=== PATIENT | female | born 1990 | race Caucasian/White ===

== ENCOUNTER 2023-03-12 12:08 | Day surgery (SDC) | payer OTHER, SELFPAY ==
--- NOTE | 2023-03-12 | PATH_ITS ---
[facility] Accession Number: [id number] No. of containers..01 Tissue . 01 Material submitted: . rectum - RECTAL LESION . 01 Diagnosis: Rectal Lesion, Biopsy: Hyperplastic colonic mucosa with active inflammation and features of mucosal prolapse. Please see comment. Negative for granulomas, dysplasia, and malignancy. [facility] 03/24/2023 2321 Local . 01 Comment: The biopsies are of superficial colonic mucosa with hyperplastic mucosal changes and mucosal prolapse. There is mild cryptitis without marked lymphoplasmacytosis. Crypt distortion cannot be evaluated due to the superficial sections. The overall morphologic appearance raises a consideration for mucosal prolapse/solitary rectal ulcer syndrome versus partial sampling of an inflammatory cloacogenic polyp. There is no evidence of dysplasia or malignancy. . 01 Electronically signed: . Jenifer Justin MD, Pathologist NPI- [id number] . 01 Gross description: . RECTAL LESION: Received in formalin is 1 fragment(s) of bustos, soft tissue measuring 0.3 x 0.2 x 0.1 cm submitted entirely in 1 cassette(s) /AAY 03/18/2023 1203 Local . 01 Pathologist provided ICD-10: K62.5 . 01 CPT . 651406 Specimen Comment: A courtesy copy of this report has been sent to [phone] Performed at: 01 [facility] [address] [place] [address] [address], [place], [place] [id number] MD Ellis Silver MD Phone: [phone]
[2023-03-12 12:28] VITALS: BP 143/73; PULSE 83; RESP 16; TEMP 36.7; O2SAT 100; BMI 21.6
--- NOTE | 2023-03-12 12:35 | PM.HP.1 ---
History of Present Illness History of Present Illness Date Patient Seen: 03/12/23 Chief complaint: Dx Colonoscopy Narrative: Rectal bleeding Meds Home Medications and Allergies Allergies Allergy/AdvReac Type Severity Reaction Status Date / Time No Known Drug Allergies Allergy Verified 03/12/23 12:19 Exam Narrative Exam Narrative: Oropharynx free of lesions Chest clear to auscultation percussion Cardiac exam reveals no S3 or murmur Assessment & Plan Assessment & Plan narrative: Rectal bleeding. Need for diagnostic colonoscopy. Risks, benefits, alternatives have explained.
--- NOTE | 2023-03-12 12:36 | PM.OP.COLON ---
Operative Date/Time/Diagnoses Date of procedure: 03/12/23 Pre-op diagnosis: See indication and findings Procedure & Clinicians Study performed: Colonoscopy Indications: Rectal bleeding Surgeon: Lionel Mckeon Procedure Notes Procedure in detail: After informed consent was obtained the patient was placed in left lateral decubitus position. The video colonoscope was introduced the rectum slowly advanced cecum. Preparation was good. On slow withdrawal mucosa was carefully examined. The scope was removed. The patient tolerated procedure well. Blood loss none Complications none Sedation mac Findings 1. Linear inflamed lesion extending from anus approximately 2.5 cm proximal. Most proximal area was biopsied gently x2. No bleeding was seen. 2. Otherwise negative colonoscopy to cecum We will merely await biopsies and discuss next steps for intervention
[2023-03-12] MEDS: LACTATED RINGERS 1,000 ML 100 ML IV (12:41)
[2023-03-12 13:03] VITALS: BP 99/38; PULSE 62; RESP 20; TEMP 36; O2SAT 98
[2023-03-12 13:10] VITALS: BP 87/45; PULSE 96; RESP 14; O2SAT 98
[2023-03-12 13:20] VITALS: BP 90/42; PULSE 71; RESP 13; O2SAT 100
== END 2023-03-12 13:28 | disposition home or self-care (01) ==
PROVIDERS: PCP Physician Assistant; Referring Provider Internal Medicine Gastroenterology; Visit Provider Internal Medicine Gastroenterology
PROC: 0DJD8ZZ Inspection of Lower Intestinal Tract, Via Natural or Artificial Opening Endoscopic (ICD-10-PCS; CPT 45378; principal; 2023-03-12 13:00)
DX: K62.5 Hemorrhage of anus and rectum (principal); K62.1 Rectal polyp
CPT/HCPCS: 45380; J2704

== ENCOUNTER 2023-03-15 10:51 | Emergency (ER) | payer OTHER, SELFPAY ==
[2023-03-15] VITALS (7 sets, daily range): BP systolic 103–147; BP diastolic 52–71; PULSE 39–73; RESP 12–21; TEMP 37.2; O2SAT 99–100; BMI 21.6
[2023-03-15 11:41] LABS: Add Manual Diff / Slide Review NO; Basophils Absolute Auto 100 /uL (0-100); Eosinophils Absolute Auto 200 /uL (0-450); Eosinophils Percent Auto 2.9 % (2-4); Hemoglobin 12.9 g/dL (12.0-16.0); Lymphocytes Absolute Auto 1400 /uL (1100-4500); Lymphocytes Percent Auto 26.5 % (25-40); Mean Corpuscular Hemoglobin 30.7 PG (26-34); Mean Corpuscular Volume 90.2 fL (80-100); Monocytes Absolute Auto 300 /uL (0-900); Monocytes Percent Auto 6.6 % (3-14); Neutrophils Absolute Auto 3400 /uL (1500-7000); Platelet Count 195 X10^3/uL (150-400); Red Blood Cell Count 4.22 X10^6/uL (4.0-5.2); Red Cell Distribution Width 13.9 % (11.6-14.8); White Blood Cell Count 5.3 X10^3/uL (4.5-11.0)
[2023-03-15 11:44] LABS: INR 1.1 (0.9-1.3); Prothrombin Time 12.1 SECONDS (10.1-12.7)
[2023-03-15 11:47] LABS: PTT Partial Thromboplastin Tim 31 SECONDS (26-36)
[2023-03-15 11:49] LABS: Alanine Aminotransferase 18 IU/L (<35); Albumin 4.6 g/dL (3.5-5.0); Albumin Globulin Ratio 1.6 (1.0-2.8); Alkaline Phosphatase 43 U/L (38-126); Aspartate Aminotransferase 30 IU/L (14-36); BUN Creatinine Ratio 14.7 (6-22); Blood Urea Nitrogen 15 mg/dL (7-17); Carbon Dioxide 27 mmol/L (22-32); Chloride 102 mmol/L (98-107); Estimated Glomerular Filt Rate > 60 mL/min (>60); Globulin 2.9 g/dL (1.7-4.1); Glucose 101 mg/dL (70-100); HEMOLYSIS 17 (0-50); Potassium 4.2 mmol/L (3.4-5.1); Sodium 136 mmol/L (137-145); Total Protein 7.5 g/dL (6.3-8.2)
[2023-03-15] MEDS: PANTOPRAZOLE 40 MG VIAL 80 MG IV (12:18)
--- NOTE | 2023-03-15 12:40 | PC.NURSE ---
Patient ambulated to the bathroom to give urine and stool samples. There was no stool, but patient did have about 15cc of straight bright red blood. She states it has been dripping like this since her recent colonoscopy.
--- NOTE | 2023-03-15 12:49 | ED_ITS ---
HPI - GI Bleed General Chief complaint: GI Bleed Stated complaint: concerns from Colonoscopy on 03/12 Time Seen by Provider: 03/15/23 12:38 Source: patient Mode of arrival: Ambulatory History of Present Illness HPI Narrative: 32-year-old female with history of PDA repair at age 8, appendectomy and C- section no daily medication with recent colonoscopy for rectal bleeding. Patient states she had been having rectal bleeding. She had colonoscopy on Friday with Dr. Mckeon here at [facility]. Patient states she was told she would a biopsy that results are pending from this. Since then she is had bright red blood sometimes when she has a bowel sometimes she just has blood when she goes to have what feels like a bowel movement. She did have 1 episode here that showed 20 mL of blood, she states sometimes will seem a little bit more sometimes less. She states sometimes hard to tell because it is in the water in the toilet. She states the 1st day she did have some constipated harder bowel movements since then they have been looser. Patient states no fevers. No chest pain or shortness of breath. She felt a little dizzy and lightheaded. No syncope. No nausea or vomiting. She denies any abdominal pain. She states she is had a little mild rectal discomfort but no rectal pain. She states she is had maximally 5 episodes each day daily. Patient states no dysuria urgency or frequency. She is not had issues with bleeding in the past. She is not on any anticoagulants. She states no daily medications. She notes surgical history is a PDA repair at age 8, appendectomy, orthopedic repair with rods and removal for or ulna and . No known drug allergies. No tobacco occasional alcohol, no illicit. Related Data Home Medications Medication Instructions Recorded Confirmed No Known Home Medications 03/12/23 03/12/23 Allergies Allergy/AdvReac Type Severity Reaction Status Date / Time No Known Drug Allergies Allergy Verified 03/15/23 11:03 Review of Systems Review of Systems ROS Unobtainable: All systems reviewed & are unremarkable except as noted in HPI and below Patient History Social History household members: spouse Smoking Status: Never smoker alcohol intake: current Smoking Status: Never smoker alcohol intake frequency: holidays/special occasions only Substance Use Type: does not use Exam Narrative Exam Narrative: GENERAL: Alert and oriented x three, well-appearing female in mild distress. HEENT: Head normocephalic, atraumatic, EOMI, pupils reactive, face symmetric, moist mucous membranes NECK: Supple, full range of motion CARDIOVASCULAR: Bradycardic but Regular rate and rhythm without murmurs, rubs or gallops. RESPIRATORY: Breath sounds equal bilaterally, no wheezes rales or rhonchi. ABDOMEN: Soft, nontender. Normoactive bowel sounds all 4 quadrants. No guarding or rebound, rigidity, no mass, patient had bright red blood per rectum. Stool occult positive. No large clots. : No CVA tenderness EXTREMITIES: Normal range of motion, no clubbing or edema. Neurovascularly intact NEUROLOGICAL: Cranial nerves II through XII grossly intact. Moving all extremities SKIN: Warm, dry, no petechiae, no rashes or lesions. Initial Vital Signs Initial Vital Signs: Vital Signs Temperature 98.9 F 03/15/23 10:58 Pulse Rate 73 03/15/23 10:58 Respiratory Rate 20 03/15/23 10:58 Blood Pressure 147/71 H 03/15/23 10:58 Pulse Oximetry 99 03/15/23 10:58 Oxygen Delivery Method Room Air 03/15/23 10:58 Course Orders Ordered: ED Orders 03/15/23 11:09 Complete Blood Count AUTO DIFF Stat Comprehensive Metabolic Panel Stat PTT Partial Thromboplastin Peng Stat Prothrombin Time INR Stat 03/15/23 12:55 Type and Screen Stat Discontinued Medications Ondansetron HCl (Ondansetron 4 Mg/2 Ml Inj) 4 mg IV NOW PRN PRN Reason: Nausea And Vomiting Ondansetron HCl (Ondansetron 4 Mg Odt) 4 mg SL NOW PRN PRN Reason: Nausea And Vomiting Pantoprazole Sodium (Pantoprazole 40 Mg Vial) 80 mg IV NOW ONE Stop: 03/15/23 11:16 Last Admin: 03/15/23 12:18 Dose: 80 mg Documented By: IZABEL Vital Signs Vital signs: Vital Signs - 8 hr 03/15/23 12:36 03/15/23 12:37 03/15/23 12:37 Pulse Rate 58 L 53 L Respiratory Rate 17 12 Blood Pressure 113/52 L Pulse Oximetry 100 100 Oxygen Delivery Method 03/15/23 13:00 03/15/23 13:00 03/15/23 13:30 Pulse Rate 49 L Respiratory Rate 14 Blood Pressure 108/53 L 105/59 L Pulse Oximetry 100 Oxygen Delivery Method 03/15/23 13:30 03/15/23 13:48 03/15/23 13:59 Pulse Rate 39 L 45 L Respiratory Rate 14 16 Blood Pressure 103/53 L Pulse Oximetry 99 99 Oxygen Delivery Method Room Air 03/15/23 13:59 Pulse Rate 50 L Respiratory Rate 21 Blood Pressure Pulse Oximetry 99 Oxygen Delivery Method MDM - GI Bleed Lab Data 03/15/23 11:09 03/15/23 11:09 Labs: Lab Results 03/15/23 03/15/23 03/15/23 Range/Units 11:09 11:09 11:09 WBC 5.3 (4.5-11.0) X10^3/uL RBC 4.22 (4.0-5.2) X10^6/uL Hgb 12.9 (12.0-16.0) g/dL Hct 38.0 (36-46) % MCV 90.2 (80-100) fL MCH 30.7 (26-34) PG MCHC 34.0 (30-36) % RDW 13.9 (11.6-14.8) % Plt Count 195 (150-400) X10^3/uL Neut % (Auto) 63.0 (50-75) % Lymph % (Auto) 26.5 (25-40) % [place] % (Auto) 6.6 (3-14) % Eos % (Auto) 2.9 (2-4) % Baso % (Auto) 1.0 (0-2) % Neut # (Auto) 3400 (9293-8964) /uL Lymph # (Auto) 1400 (9297-4003) /uL [place] # (Auto) 300 (0-900) /uL Eos # (Auto) 200 (0-450) /uL Baso # (Auto) 100 (0-100) /uL PT 12.1 (10.1-12.7) SECONDS INR 1.1 (0.9-1.3) APTT 31 (26-36) SECONDS Sodium 136 L (137-145) mmol/L Potassium 4.2 (3.4-5.1) mmol/L Chloride 102 (98-107) mmol/L Carbon Dioxide 27 (22-32) mmol/L BUN 15 (7-17) mg/dL Creatinine 1.02 (0.52-1.04) mg/dL Estimated GFR > 60 (>60) mL/min BUN/Creatinine Ratio 14.7 (6-22) Glucose 101 H (70-100) mg/dL Calcium 9.0 (8.4-10.2) mg/dL Total Bilirubin 1.0 (0.2-1.3) mg/dL AST 30 (14-36) IU/L ALT 18 (<35) IU/L Alkaline Phosphatase 43 (38-126) U/L Total Protein 7.5 (6.3-8.2) g/dL Albumin 4.6 (3.5-5.0) g/dL Globulin 2.9 (1.7-4.1) g/dL Albumin/Globulin Ratio 1.6 (1.0-2.8) Blood Type Antibody Screen 03/15/23 Range/Units 12:55 WBC (4.5-11.0) X10^3/uL RBC (4.0-5.2) X10^6/uL Hgb (12.0-16.0) g/dL Hct (36-46) % MCV (80-100) fL MCH (26-34) PG MCHC (30-36) % RDW (11.6-14.8) % Plt Count (150-400) X10^3/uL Neut % (Auto) (50-75) % Lymph % (Auto) (25-40) % [place] % (Auto) (3-14) % Eos % (Auto) (2-4) % Baso % (Auto) (0-2) % Neut # (Auto) (7487-5387) /uL Lymph # (Auto) (6205-0291) /uL [place] # (Auto) (0-900) /uL Eos # (Auto) (0-450) /uL Baso # (Auto) (0-100) /uL PT (10.1-12.7) SECONDS INR (0.9-1.3) APTT (26-36) SECONDS Sodium (137-145) mmol/L Potassium (3.4-5.1) mmol/L Chloride (98-107) mmol/L Carbon Dioxide (22-32) mmol/L BUN (7-17) mg/dL Creatinine (0.52-1.04) mg/dL Estimated GFR (>60) mL/min BUN/Creatinine Ratio (6-22) Glucose (70-100) mg/dL Calcium (8.4-10.2) mg/dL Total Bilirubin (0.2-1.3) mg/dL AST (14-36) IU/L ALT (<35) IU/L Alkaline Phosphatase (38-126) U/L Total Protein (6.3-8.2) g/dL Albumin (3.5-5.0) g/dL Globulin (1.7-4.1) g/dL Albumin/Globulin Ratio (1.0-2.8) Blood Type A Positive Antibody Screen Negative Point of Care Testing Test Results Negative Stool Occult Blood Positive Urine Dip Bedside Urine Glucose Negative Bedside Urine Bilirubin - Negative Bedside Urine Ketone - Negative Urine Specific [place] 1.015 Bedside Urine Occult Blood - Negative Bedside Urine pH 6.0 Bedside Urine Protein - Negative Bedside Urine Urobilinogen - Negative Bedside Urine Nitrite - Negative Bedside Urine Leukocytes - Negative Esterase MDM Narrative Medical decision making narrative: 32-year-old female with recent colonoscopy found to have a linear lesion on colonoscopy and had 2 areas, was noted 2.5 cm proximal from the anus. Patient had no active bleeding colonoscopy but this was why she had her colonoscopy in the 1st place. She is had bleeding since then. Suspect it is from this area. Patient has felt a little dizzy, her labs are overall reassuring, heart rate is in the lower end which he states is a little atypical. Patient has not had increasing frequency of bleeding. Had a small amount of blood here without any bowel movement. Discussed with General surgery, Dr. Bautista. No specific treatments at this time. Patient short term follow up with General surgery/GI. If patient is having persistent or worsening symptoms to return for re- evaluation. Discharge Plan Departure Patient Disposition: Home Clinical Impression: Bright red rectal bleeding Instructions: DI for Rectal Bleeding Activity Restrictions/Additional Instructions: Your colonoscopy showed a linear inflamed lesion approximately 2.5 cm from the anus that had biopsy during your colonoscopy in his likely. The source of your bleeding today. Please follow-up with your electrical project engineer this week. I did speak with General surgery, if you are constipated take a stool softener otherwise you do not have to do any other changes currently. Return if increasing or persistent bleeding, new lightheadedness or passing out, new chest pain, shortness of breath, if you are having increasing large amounts of bleeding or clots or have other concerns. Prescriptions: No Action No Known Home Medications Referrals: Rae Aquino PA-C [Primary Care Provider] - Lionel Mckeon MD [Physician] - Stand Alone Forms: Patient Portal/API
== END 2023-03-15 14:11 | disposition home or self-care (01) ==
PROVIDERS: Emergency Provider Emergency Medicine; PCP Physician Assistant
DX: K62.5 Hemorrhage of anus and rectum (principal)
CPT/HCPCS: 36415; 80053; 81003; 81025; 82272; 85025; 85610; 85730; 86850; 86900; 86901; 96374; 99284; C9113